=== PATIENT | female | born 1975 | race African-American/Black ===

== ENCOUNTER 2023-11-16 14:18 | Emergency (ER) | payer MEDICAID ==
[~2023-11-16] VITALS: Ht 162.6 cm; Wt 61.0 kg
[2023-11-16 14:27] VITALS: BP 106/48; PULSE 104; RESP 14; TEMP 98.8; O2SAT 98
[2023-11-16] MEDS ORDERED: ACETAMINOPHEN 325MG TABLET PO STA (14:40)
[2023-11-16] MEDS ORDERED: ONDANSETRON 4MG ODT PO STA (14:40)
[2023-11-16 15:40] LABS: HEMATOCRIT. 40.6 % (36.0-48.0); HEMOGLOBIN. 13.2 g/dL (12.0-16.0); MEAN CORPUSCULAR HEMOGLOBIN 30.3 pg (28.0-32.0); MEAN CORPUSCULAR HGB CONC 32.5 g/dL (31.0-37.0); MEAN CORPUSCULAR VOLUME 93.2 fL (81.0-99.0); MEAN PLATELET VOLUME 7.9 fl (7.4-10.4); PLATELET 434 x1000/uL (130-400); RED BLOOD CELL COUNT 4.35 mill/uL (4.2-5.4); RED CELL DISTRIBUTION WIDTH 13.7 % (11.6-14.6); WHITE BLOOD COUNT 15.4 x1000/uL (4.5-11.0)
[2023-11-16 15:45] LABS: DIFFERENTIAL COMMENT 1
[2023-11-16 15:53] LABS: ALANINE AMINOTRANSFERASE 11 IU/L (10-49); ALBUMIN 4.5 g/dL (3.2-4.8); ASPARTATE AMINOTRANSFERASE 18 IU/L (<34); BILIRUBIN TOTAL 1.1 mg/dL (0.1-1.0); CALCIUM 9.7 mg/dL (8.7-10.4); CARBON DIOXIDE 21 mEq/L (21-32); CHLORIDE 103 mEq/L (98-107); CREATININE 0.5 mg/dL (0.6-1.0); GLUCOSE 122 mg/dL (70-105); HCG SCREEN NEGATIVE; POTASSIUM 3.2 mEq/L (3.5-5.1); PROTEIN TOTAL 8.1 g/dL (6.0-8.3); SODIUM 135 mEq/L (136-145); UREA NITROGEN BLOOD 10 mg/dL (9-23)
[2023-11-16 16:03] LABS: ETHANOL BLOOD < 10 mg/dL (<10)
[2023-11-16 16:46] LABS: PLATELET ESTIMATE INCREASED
[2023-11-16] MEDS ORDERED: ONDA4TAB50 MT (22:00)
== END 2023-11-16 22:23 | disposition home or self-care (01) ==
LOC: ER 14:18
DX: R10.33 Periumbilical pain (principal); R11.2 Nausea with vomiting, unspecified
CPT/HCPCS: 36415; 71045; 74176; 80053; 80320; 84703; 85025; 99284; G0480